=== PATIENT | male | born 1960 | race Caucasian/White ===

== ENCOUNTER 2019-05-29 05:49 | Day surgery (SDC) | payer BC ==
--- NOTE | 2019-05-09 18:48 | HP ---
CC: Dr. Doe * ADMITTING HISTORY AND PHYSICAL: DATE OF ADMISSION: 05/15/19 ADMITTING DIAGNOSES: Right spermatocele. PLANNED PROCEDURE: Right spermatocelectomy. SURGEON: Dr. Muñoz. HISTORY OF PRESENT ILLNESS: Carmine Burns is a 59-year-old gentleman who had originally been evaluated for right spermatocele, little over a year ago. He had noticed this 3 to 4 years prior to this and a year ago it measured about 4 to 5 cm and over the last year or so has grown and now measures over 7 cm and is causing increasing discomfort. PAST MEDICAL HISTORY: Significant for: 1. Hypothyroidism. 2. Arthritis. 3. History of celiac disease. PAST SURGICAL HISTORY: Significant for umbilical hernia repair and bilateral inguinal hernia repair. MEDICATIONS ON ADMISSION: Levothyroxine 125 mcg once a day. ALLERGIES AND INTOLERANCES: AMOXICILLIN and AZITHROMYCIN (hives with both). FAMILY HISTORY: Noncontributory. SOCIAL HISTORY: Smoking history: He is a ex-smoker who quit at age 29 with a 10-pack year smoking history prior to that. He also has a history of microscopic hematuria for which he had a full evaluation including renal sonogram and cystoscopy without any abnormal findings other than some benign enlargement of the prostate which may be contributing to the microscopic hematuria. REVIEW OF SYSTEMS: He is otherwise in excellent health. There is no history of diabetes mellitus or any other major systemic illness. PHYSICAL EXAMINATION GENERAL: Reveals a pleasant, healthy-appearing, middle age gentleman. VITAL SIGNS: Blood pressure is 112/68, pulse 45 per minute and regular, oxygen saturation is 97% on room air, temperature 97.1. LUNGS: Clear bilaterally. CARDIOVASCULAR: Regular rate and rhythm. S1, S2. ABDOMEN: Soft without masses. Testicles are descended bilaterally with a large right spermatocele noted. He also has small left epididymal cyst. IMPRESSION: I discussed the surgical procedure of right spermatocele excision including possible risks of bleeding, infection, recurrence of the spermatocele and a small risk of possible injury to the right testicle. All his questions were answered. PLAN: Right spermatocelectomy. [id number]/[facility] #: [id number] MTDD
[~2019-05-29 05:49] MED LIST: Buffered Lidocaine 1% SYRIN* 1 ML/SYRINGE INTRADERM ONE; Tranexamic Acid 1,000 MG/10 ML SDV ONE; ceFOXitin(*) 1 GM VIAL ONE
[2019-05-29] MEDS ORDERED: DiMENhydriNATE IV* 50 MG/ML VIAL IV PUSH PRN (05:56)
[2019-05-29] MEDS ORDERED: Naloxone* 0.4 MG/ML 1 ML VIAL IV PRN (05:56)
[2019-05-29] MEDS ORDERED: PROCHLORPERAZINE INJ 5 MG/ML 2 ML VIAL IV PRN (05:56)
[2019-05-29] MEDS ORDERED: fentaNYL* 50 MCG/ML 2 ML VIAL (100 MCG VIAL) IV PRN (05:56)
[2019-05-29] MEDS ORDERED: HYDROmorphone INJ1* 1 MG/ML SYRINGE IV PRN (05:56)
[2019-05-29] MEDS ORDERED: oxyCODONE TAB* 5 MG TAB PO PRN (05:56)
[2019-05-29] MEDS ORDERED: Lactated Ringers 1000 ML Bag* 1,000 ML IV SCH (06:00)
[2019-05-29] MEDS ORDERED: Dexamethasone TAB* 4 MG PO ONE (06:00)
[2019-05-29] MEDS ORDERED: Ondansetron ODT TAB* 4 MG PO ONE (06:00)
[2019-05-29] MEDS ORDERED: Famotidine IV* 10 MG/ML 2 ML (20 mg) IV ONE (06:00)
[2019-05-29] MEDS ORDERED: Famotidine IV* 10 MG/ML 2 ML (20 mg) ONE (06:12)
[2019-05-29] MEDS ORDERED: Dexamethasone TAB* 4 MG ONE (06:12)
[2019-05-29] MEDS ORDERED: Ondansetron ODT TAB* 4 MG ONE (06:12)
[2019-05-29] MEDS ORDERED: Bupivacaine 0.5%* 50 ML MDV VIAL ONE (07:06)
[2019-05-29] MEDS ORDERED: Clindamycin 900 MG/D5W BAG(*) 900 MG/50 ML BAG IVPB ONE (07:22)
[2019-05-29] MEDS ORDERED: Midazolam* 1 MG/ML 5 ML VIAL (5 MG) ONE (07:23)
[2019-05-29] MEDS ORDERED: KETAMINE HCL* 50 MG/ML 10 ML VIAL ONE (07:23)
[2019-05-29] MEDS ORDERED: fentaNYL* 50 MCG/ML 2 ML VIAL (100 MCG VIAL) ONE ×2 (07:23→09:10)
[2019-05-29] MEDS ORDERED: Propofol* 10 MG/ML 20 ML BTL ONE (08:05)
[2019-05-29] MEDS ORDERED: PROCHLORPERAZINE INJ 5 MG/ML 2 ML VIAL ONE (08:05)
[2019-05-29] MEDS ORDERED: Ketorolac INJ* 30 MG/ML 1 ML VIAL ONE (08:05)
[2019-05-29] MEDS ORDERED: Lidocaine 2% PF * 5 ML VIAL ONE (08:06)
[2019-05-29] MEDS ORDERED: Acetaminophen IV 1GM/100ML * 100 ML ONE (08:06)
[2019-05-29 10:17] VITALS: BP 116/82
--- NOTE | 2019-05-29 15:56 | OP ---
DATE OF OPERATION: 05/29/19 - [facility] DATE OF : 62 SURGEON: Jovon Beauchamp MD ANESTHESIOLOGIST: Dr. Carmine Pantoja. ANESTHESIA: General. PRE-OP DIAGNOSIS: Right spermatocele. POST-OP DIAGNOSIS: Right spermatocele. OPERATIVE PROCEDURE: Right spermatocelectomy. INDICATION FOR PROCEDURE: Mr. Burns is a 59-year-old white male who had progressive and symptomatic right scrotal enlargement. Evaluation confirmed the presence of a right spermatocele. Because of the symptomatic nature of the condition and after discussing the options of management, right spermatocelectomy was advised and accepted. PATHOLOGY: Exam under anesthesia again confirmed the presence of a 7 to 8 cm right spermatocele. Upon right scrotal exploration, there was no hydrocele noted. The testicle looked and felt normal without any testicular masses. There was no inguinal hernia noted. A 7 to 8 cm spermatocele was noted. No other abnormalities were seen. DESCRIPTION OF PROCEDURE: After successful general anesthesia, the patient was placed in the supine position and was prepped and draped for scrotal exploration. A transverse incision was carried over the mid anterior right hemiscrotum and was deepened through the dartos muscle. The tunica vaginalis was identified and was dissected and the testis within the tunica vaginalis was delivered through the incision. The tunica vaginalis was then opened. The spermatocele was identified. By careful dissection, the spermatocele was dissected all the way to its origin from the epididymis. The spermatic cord and its vessels were identified, carefully dissected and preserved. The spermatocele was then tied at its origin from the epididymis and was excised and sent for pathology. Careful hemostasis was achieved. The tunica vaginalis was then everted and approximated to itself using a running suture of 4-0 Vicryl to avoid formation of reactive hydrocele. After making sure there was very good hemostasis and after checking the spermatic cord and the testis, the testis was replaced in the scrotal cavity making sure there was no twisting of the cord. A Pollo drain was then placed in the scrotal cavity and brought out through a stab wound incision in the lower scrotum. The scrotal incision was then closed using continuous sutures of 4-0 Vicryl for the dartos muscle. The skin was closed using interrupted everting sutures of 4-0 chromic. The [place] drain was transfixed to the skin with a Prolene suture. The patient tolerated the procedure well and left the operating room in good condition. There was no blood loss. The specimen was right spermatocele. All the counts were correct. [id number]/[facility] #: [id number] [facility]
== END 2019-05-29 10:45 | disposition home or self-care (01) ==
LOC: OR 05:49
PROVIDERS: ATTEND Urology
DX: N43.42 Spermatocele of epididymis, multiple (principal); E03.9 Hypothyroidism, unspecified; K90.0 Celiac disease; M15.9 Polyosteoarthritis, unspecified; Z87.891 Personal history of nicotine dependence; Z88.1 Allergy status to other antibiotic agents
CPT/HCPCS: 88304; A9270-GY; J0694; J0780; J1885; J2250; J2704; J3010; J3490; J8540